=== PATIENT | male | born 1995 | race Caucasian/White ===

== ENCOUNTER 2024-11-01 14:40 | Inpatient (IN) | payer OTHER ==
[2024-11-01 14:49] VITALS: BMI 36.8
[2024-11-01 15:23] LABS: EPI CELLS 2 /uL (0-25.1); HYALINE CASTS 0 /uL (0-3.1); URINE APPEARANCE CLOUDY; URINE BILIRUBIN 2+ (NEGATIVE); URINE COLOR ORANGE; URINE GLUCOSE (UA) NEGATIVE (NEGATIVE); URINE KETONE TRACE (NEGATIVE); URINE LEUK ESTERASE 1+ (NEGATIVE); URINE NITRITE POSITIVE (NEGATIVE); URINE PROTEIN TRACE (NEGATIVE); URINE RBC 5 /uL (0-23.9); URINE UROBILINOGEN 2.0 mg/dL (0.2-1.0); URINE WBC 4 /uL (0-25.8)
[2024-11-01 15:56] LABS: ABSOLUTE IMMATURE GRANULOCYTES 0.06 x10^3/uL (0.0-0.031); BASOPHILS # 0.05 x10^3/uL (0.01-0.08); EOSINOPHIL % 1.5 % (0.8-7.0); EOSINOPHILS # 0.10 x10^3/uL (0.04-0.54); MCHC 30.9 g/dl (32.3-36.5); MEAN CELL VOLUME 98.9 fl (79.0-92.2); MEAN PLT VOLUME 9.5 fl (9.4-12.4); MONOCYTE # 0.58 x10^3/uL (0.30-0.82); MONOCYTE % 8.6 % (5.3-12.2); RDW 20.3 % (11.9-15.3)
[2024-11-01 16:08] LABS: INR 1.16 (0.83-1.09); PROTHROMBIN TIME (PATIENT) 12.6 SEC (9.7-13.0)
[2024-11-01 16:11] LABS: ACTIVATED PTT 31.3 SECONDS (25.2-36.5)
[2024-11-01 16:17] LABS: GLUCOSE,RANDOM 91.0 mg/dL (74-106); TOT PROT 7.3 g/dl (6.4-8.2)
[2024-11-01 16:18] LABS: CO2 24.0 mmol/L (21-32)
[2024-11-01 16:20] LABS: ALK PHOS 120.0 U/L (40-150)
[2024-11-01 16:22] LABS: SGOT/AST 147.0 U/L (5-34); SGPT/ALT 339.0 U/L (0-55)
[2024-11-01 16:23] LABS: CREATININE 0.81 mg/dL (0.55-1.3)
[2024-11-01 22:51] LABS: ABSOLUTE IMMATURE GRANULOCYTES 0.08 x10^3/uL (0.0-0.031); BASOPHILS # 0.07 x10^3/uL (0.01-0.08); EOSINOPHIL % 1.3 % (0.8-7.0); EOSINOPHILS # 0.09 x10^3/uL (0.04-0.54); MCHC 30.9 g/dl (32.3-36.5); MEAN CELL VOLUME 98.9 fl (79.0-92.2); MEAN PLT VOLUME 9.9 fl (9.4-12.4); MONOCYTE # 0.40 x10^3/uL (0.30-0.82); MONOCYTE % 6.0 % (5.3-12.2); RDW 20.7 % (11.9-15.3)
[2024-11-01] MEDS: SODIUM CHLORIDE 1,000 ML IV STA (22:58)
[2024-11-01 23:35] LABS: ERYTHROCYTE SEDIMENTATION RATE 75 mm/hr (0-10)
[2024-11-01 23:40] LABS: HEPATITIS B SURF AG NON-MATERN NON-REACTIVE (NONREACTIVE)
[2024-11-02] MEDS: SODIUM CHLORIDE 1,000 ML IV SCH (00:30)
[2024-11-02 09:35] LABS: MCHC 30.5 g/dl (32.3-36.5); MEAN CELL VOLUME 98.6 fl (79.0-92.2); MEAN PLT VOLUME 9.9 fl (9.4-12.4); RDW 21.1 % (11.9-15.3)
[2024-11-02 11:07] LABS: GLUCOSE,RANDOM 100 mg/dL (74-106)
[2024-11-02 11:08] LABS: TOT PROT 6.6 g/dl (6.4-8.2)
[2024-11-02 11:09] LABS: CO2 23 mmol/L (21-32)
[2024-11-02 11:10] LABS: ALK PHOS 112 U/L (40-150)
[2024-11-02 11:12] LABS: LDH 376 U/L (87-246)
[2024-11-02 11:13] LABS: CREATININE 0.79 mg/dL (0.55-1.3); SGOT/AST 136 U/L (5-34); SGPT/ALT 305 U/L (0-55)
[2024-11-02 11:14] LABS: IRON SERUM 243 ug/dL (50-175)
[2024-11-02 14:47] LABS: COCAINE, UR NEGATIVE (NEGATIVE)
[2024-11-02 14:48] LABS: OPIATES, URI NEGATIVE (NEGATIVE); PHENCYCLIDINE,URINE NEGATIVE (NEGATIVE); URINE AMPHETAMINES NEGATIVE (NEGATIVE); URINE BARBITURATES NEGATIVE (NEGATIVE); URINE BENZODIAZEPINES NEGATIVE (NEGATIVE)
[2024-11-02 14:49] LABS: METHADONE, UR NEGATIVE (NEGATIVE)
[2024-11-02] MEDS: POLYETHYLENE GLYCOL (HEALTHYLAX) 3350 17 GM PACKET PO SCH (16:10)
[2024-11-03 08:08] LABS: CMV IgM 40.5 AU/mL (0.0-29.9)
[2024-11-03 08:45] LABS: ABSOLUTE IMMATURE GRANULOCYTES 0.06 x10^3/uL (0.0-0.031); BASOPHILS # 0.05 x10^3/uL (0.01-0.08); EOSINOPHIL % 1.5 % (0.8-7.0); EOSINOPHILS # 0.09 x10^3/uL (0.04-0.54); MCHC 30.6 g/dl (32.3-36.5); MEAN CELL VOLUME 99.6 fl (79.0-92.2); MEAN PLT VOLUME 9.8 fl (9.4-12.4); MONOCYTE # 0.42 x10^3/uL (0.30-0.82); MONOCYTE % 7.2 % (5.3-12.2); RDW 22.1 % (11.9-15.3)
[2024-11-03 09:04] LABS: GLUCOSE,RANDOM 90.0 mg/dL (74-106)
[2024-11-03 09:05] LABS: TOT PROT 6.8 g/dl (6.4-8.2)
[2024-11-03 09:06] LABS: CO2 24.0 mmol/L (21-32)
[2024-11-03 09:07] LABS: ALK PHOS 105.0 U/L (40-150)
[2024-11-03 09:10] LABS: CREATININE 0.81 mg/dL (0.55-1.3); LDL CHOLESTEROL (ONLY SJRH) 69.0 mg/dL (5-100); SGOT/AST 163.0 U/L (5-34); SGPT/ALT 357.0 U/L (0-55)
[2024-11-03] MEDS: FOLIC ACID 1 MG TABLET (FP) PO SCH (09:23)
[2024-11-03] MEDS: POLYETHYLENE GLYCOL (HEALTHYLAX) 3350 17 GM PACKET PO SCH (09:23)
[2024-11-03] MEDS: PANTOPRAZOLE 40 MG TABLET PO SCH (09:23)
[2024-11-03 09:57] LABS: HCV DIAGNOSTIC IN-HOUSE W/RFLX NON-REACTIVE (NONREACTIVE); HEPATITIS B SURF AG NON-MATERN NON-REACTIVE (NONREACTIVE)
[2024-11-04] MEDS ORDERED: MAG HYDROX/AL HYDROX/SIMETH 30 ML UNIT-DOSE CUP PO PRN (12:30)
[2024-11-04] MEDS ORDERED: MELATONIN 5 MG TABLETS PO PRN (12:30)
[2024-11-04 13:32] LABS: MCHC 31.5 g/dl (32.3-36.5); MEAN CELL VOLUME 103.0 fl (79.0-92.2); MEAN PLT VOLUME 10.3 fl (9.4-12.4); RDW 22.3 % (11.9-15.3)
[2024-11-04 13:37] LABS: GLUCOSE,RANDOM 90.0 mg/dL (74-106); TOT PROT 6.8 g/dl (6.4-8.2)
[2024-11-04 13:38] LABS: CO2 24.0 mmol/L (21-32)
[2024-11-04 13:40] LABS: ALK PHOS 101.0 U/L (40-150)
[2024-11-04 13:42] LABS: SGOT/AST 153.0 U/L (5-34); SGPT/ALT 352.0 U/L (0-55)
[2024-11-04 13:43] LABS: CREATININE 0.83 mg/dL (0.55-1.3)
[2024-11-04] MEDS: BENZOCAINE/MENTH/CETYLPYRD CL 1 EACH LOZENGE MM PRN (13:52)
[2024-11-04] MEDS: LACTATED RINGERS SOLUTION 1,000 ML/1,000 ML INFUS.BAG IV SCH (15:39)
[2024-11-04] MEDS ORDERED: BISACODYL 5 MG TABLET.DR (FP) PO ONE (16:00)
[2024-11-04] MEDS ORDERED: PEG 3350/NA SULF BICARB CL/KCL 4000 ML SOLN.RECON PO ONE (17:00)
[2024-11-05] MEDS: IBUPROFEN 400 MG TABLET (FP) PO PRN (05:56)
[2024-11-05 11:35] LABS: MCHC 31.6 g/dl (32.3-36.5); MEAN CELL VOLUME 102.6 fl (79.0-92.2); MEAN PLT VOLUME 9.9 fl (9.4-12.4); RDW 22.1 % (11.9-15.3)
[2024-11-05 11:48] LABS: INR 1.19 (0.83-1.09); PROTHROMBIN TIME (PATIENT) 13.0 SEC (9.7-13.0)
[2024-11-05 12:18] LABS: GLUCOSE,RANDOM 114.0 mg/dL (74-106)
[2024-11-05 12:19] LABS: TOT PROT 6.7 g/dl (6.4-8.2)
[2024-11-05 12:20] LABS: CO2 26.0 mmol/L (21-32)
[2024-11-05 12:21] LABS: ALK PHOS 102.0 U/L (40-150)
[2024-11-05 12:24] LABS: CREATININE 0.93 mg/dL (0.55-1.3); SGOT/AST 147.0 U/L (5-34); SGPT/ALT 354.0 U/L (0-55)
[2024-11-05 19:06] LABS: GLIADIN ANTIBODY IGA 5 units (0-19); TRANSGLUTAMINASE IGG < 2 U/mL (0-5)
[2024-11-06 11:25] LABS: MCHC 31.1 g/dl (32.3-36.5); MEAN CELL VOLUME 102.6 fl (79.0-92.2); MEAN PLT VOLUME 10.0 fl (9.4-12.4); RDW 21.6 % (11.9-15.3)
[2024-11-06 12:08] LABS: GLUCOSE,RANDOM 85.0 mg/dL (74-106); TOT PROT 7.4 g/dl (6.4-8.2)
[2024-11-06 12:09] LABS: CO2 23.0 mmol/L (21-32)
[2024-11-06 12:11] LABS: ALK PHOS 106.0 U/L (40-150)
[2024-11-06 12:14] LABS: CREATININE 0.97 mg/dL (0.55-1.3); SGOT/AST 140.0 U/L (5-34); SGPT/ALT 369.0 U/L (0-55)
[2024-11-06 12:58] VITALS: RESP 18
[2024-11-07] MEDS: IBUPROFEN 600 MG TABLET (FP) PO ONE (06:52)
[2024-11-07 06:53] LABS: MCHC 31.5 g/dl (32.3-36.5); MEAN CELL VOLUME 100.7 fl (79.0-92.2); MEAN PLT VOLUME 9.4 fl (9.4-12.4); RDW 20.9 % (11.9-15.3)
[2024-11-07 07:30] LABS: GLUCOSE,RANDOM 87.0 mg/dL (74-106); TOT PROT 7.3 g/dl (6.4-8.2)
[2024-11-07 07:31] LABS: CO2 24.0 mmol/L (21-32)
[2024-11-07 07:33] LABS: ALK PHOS 114.0 U/L (40-150)
[2024-11-07 07:35] LABS: CREATININE 0.9 mg/dL (0.55-1.3); SGOT/AST 120.0 U/L (5-34); SGPT/ALT 337.0 U/L (0-55)
[2024-11-07 09:00] VITALS: BP 122/66; PULSE 77; TEMP 98.4
[2024-11-09 14:06] LABS: METHYLMALONIC ACID- 126 nmol/L (0-378)
== END 2024-11-07 14:48 | disposition home or self-care (01) | DRG 663 ==
LOC: JER 14:40 → JERBED 19:15 → OBSVTOIN 20:36 → J5S 23:29
PROVIDERS: ADMIT Hospitalist
PROC: 30233N1 Transfusion of Nonautologous Red Blood Cells into Peripheral Vein, Percutaneous Approach (ICD-10-PCS; principal; 2024-11-01)
DX: D58.9 Hereditary hemolytic anemia, unspecified (principal); K76.0 Fatty (change of) liver, not elsewhere classified; F10.20 Alcohol dependence, uncomplicated; R59.9 Enlarged lymph nodes, unspecified; R68.81 Early satiety; R74.01 Elevation of levels of liver transaminase levels; R94.5 Abnormal results of liver function studies; D64.9 Anemia, unspecified
CPT/HCPCS: 36415; 36430; 74177-TC; 74181-TC; 76705-TC; 80048; 80053; 80061; 80076; 80307; 81003; 82248; 82272; 82550; 82607; 82728; 82746; 82784; 82955; 83010; 83516; 83540; 83550; 83615; 83690; 83735; 83921; 84100; 84155; 84165; 85025; 85027; 85610; 85651; 85660; 85730; 86038; 86140; 86644; 86645; 86664; 86704; 86705; 86708; 86803; 86850; 86880; 86900; 86901; 86922; 87086; 87340; 87350; 87517; 87522; 87798; 93005; 93010; 99285-25; G0378; P9058; Q9967